=== PATIENT | male | born 1995 | race Caucasian/White ===

== ENCOUNTER 2017-08-06 21:24 | Emergency (ER) | payer BC ==
[2017-08-06] MEDS ORDERED: Albuterol 0.083% 2.5 MG/3 ML Neb Soln NEB ONE (21:33)
[2017-08-06] MEDS ORDERED: predniSONE 20 MG Tab PO ONE (21:38)
[2017-08-06 21:39] VITALS: BP 147/80
[2017-08-06] MEDS ORDERED: Albuterol 0.5% 2.5 MG/0.5 ML Neb Soln ONE (21:42)
[2017-08-06] MEDS ORDERED: Albuterol 0.083% 2.5 MG/3 ML Neb Soln ONE (21:43)
--- NOTE | 2017-08-06 21:44 | EDM.PDOC ---
ED HPI GENERAL MEDICAL PROBLEM - General Chief Complaint: Respiratory Problem Stated Complaint: SOB POSS ASTHMA ATTACK Time Seen by Provider: 08/06/17 21:28 Source of Information: Reports: Patient History Limitations: Reports: Respiratory Distress - History of Present Illness INITIAL COMMENTS - FREE TEXT/NARRATIVE: Patient is a 22-year-old male presents ED complaining of shortness of breath. Patient has a history of asthma and normally uses a albuterol inhaler when exacerbations occur. Patient states he did not have insurance and thus he was not able to refill the albuterol inhaler prescription. States he has had a exacerbation of asthma daily for quite some time. States normally occurs with the plan with his dog or exert himself. He's had a cough is nonproductive. Denies any fever, chills, recent upper respiratory infection, chest pain, abdominal pain, or any additional complaints. Patient states normally 2 puffs of inhaler will relieve his symptoms. - Related Data Allergies Allergy/AdvReac Type Severity Reaction Status Date / Time Penicillins Allergy Cannot Verified 07/10/17 20:17 CDT Remember dust Allergy Wheezing Uncoded 08/06/17 21:39 Home Meds: Home Meds Albuterol [Proventil HFA] 200 puff INH Q4H PRN #1 inhaler 08/06/17 [Rx] Prednisone [IJD: predniSONE] 40 mg PO WITHBREAKFAST #10 tab 08/06/17 [Rx] Past Medical History - Past Health History Medical/Surgical History: Denies Medical/Surgical History Social & Family History - Tobacco Use Smoking Status *Q: Current Some Day Smoker Years of Tobacco use: 1 Packs/Tins Daily: 0.1 Second Hand Smoke Exposure: No - Caffeine Use Caffeine Use: Reports: Coffee, Energy Drinks - Recreational Drug Use Recreational Drug Use: Yes Drug Use in Last 12 Months: Yes Recreational Drug Type: Reports: Marijuana/Hashish Other Recreational Drug Type: mushrooms Recreational Drug Use Frequency: Not Used In Over 2 Months ED ROS GENERAL - Review of Systems Review Of Systems: ROS reveals no pertinent complaints other than HPI. ED EXAM, GENERAL - Physical Exam Exam: See Below Exam Limited By: No Limitations General Appearance: Alert, WD/WN, Mild Distress Ears: Hearing Grossly Normal Nose: Normal Inspection, Normal Mucosa, No Blood Throat/Mouth: Normal Inspection, Normal Oropharynx, Normal Voice, No Airway Compromise Head: Atraumatic, Normocephalic Neck: Normal Inspection, Supple Respiratory/Chest: Chest Non-Tender, Respiratory Distress, Wheezing (All lobes.) , Accessory Muscle Use, Prolonged Expiration, Other (Able to speak in 3-5 word sentences.) Cardiovascular: Normal Peripheral Pulses, Regular Rate, Rhythm Peripheral Pulses: 2+: Radial (R) Neurological: Alert, Oriented, CN II-XII Intact, Normal Cognition, No Motor/ Sensory Deficits Psychiatric: Normal Affect, Normal Mood Skin Exam: Warm, Dry, Intact, Normal Color, No Rash Course - Vital Signs Last Recorded V/S: Last Vital Signs Temp 97.9 F 08/06/17 21:35 Pulse 84 08/06/17 21:35 Resp 22 H 08/06/17 21:35 BP 147/80 H 08/06/17 21:35 Pulse Ox 96 08/06/17 21:45 - Orders/Labs/Meds Orders: Active Orders 24 hr Category Date Time Status RT Aerosol Therapy [RC] ASDIRECTED Care 08/06/17 21:35 Active Meds: Medications Discontinued Medications Generic Name Dose Route Start Last Admin Trade Name Michele PRN Reason Stop Dose Admin Albuterol 2.5 mg 08/06/17 21:33 08/06/17 21:45 Proventil Neb Soln NEB 08/06/17 21:34 2.5 mg ONETIME ONE Administration Albuterol Confirm 08/06/17 21:42 08/06/17 21:44 Proventil Administered 08/06/17 21:43 Not Given Dose 2.5 mg .ROUTE .STK-MED ONE Albuterol Confirm 08/06/17 21:43 08/06/17 21:45 Proventil Neb Soln Administered 08/06/17 21:44 Not Given Dose 2.5 mg .ROUTE .STK-MED ONE Prednisone 40 mg 08/06/17 21:38 08/06/17 21:59 Prednisone PO 08/06/17 21:39 40 mg ONETIME ONE Administration - Re-Assessments/Exams Free Text/Narrative Re-Assessment/Exam: Ordered albuterol neb treatment 2.5 mg and prednisone 40 mg by mouth. 08/06/17 22:31 Symptoms have resolved. He is ready be discharged home. Discharge instructions as documented. Departure - Departure Time of Disposition: 22:31 Disposition: Home, Self-Care 01 Clinical Impression: Exacerbation of asthma Qualifiers: Asthma severity: mild Asthma persistence: intermittent Qualified Code(s): J45.21 - Mild intermittent asthma with (acute) exacerbation - Discharge Information Prescriptions: Albuterol [Proventil HFA] 200 puff INH Q4H PRN #1 inhaler PRN Reason: Dyspnea Prednisone [IJD: predniSONE] 40 mg PO WITHBREAKFAST #10 tab Instructions: Asthma, Adult Referrals: Domingo Shannon [Physician] - Forms: ED Department Discharge Additional Instructions: As discussed take prednisone 40 mg every day for the next 5 days. Utilize albuterol inhaler 1-2 puffs every 4 hours as needed for dyspnea. Follow-up with Dr. Perez at [facility] in [place] for reevaluation this coming week and to establish care. Return to the ED as needed for any new or worsening symptoms. Do not smoke marijuana. - My Orders Last 24 Hours: My Active Orders 08/06/17 21:35 RT Aerosol Therapy [RC] ASDIRECTED - Assessment/Plan Last 24 Hours: My Active Orders 08/06/17 21:35 RT Aerosol Therapy [RC] ASDIRECTED
== END 2017-08-06 22:39 | disposition home or self-care (01) ==
LOC: JD.ED 21:24
DX: J45.21 Mild intermittent asthma with (acute) exacerbation (principal); F17.210 Nicotine dependence, cigarettes, uncomplicated; Z88.0 Allergy status to penicillin; Z91.048 Other nonmedicinal substance allergy status
CPT/HCPCS: 94640; 99285; A9270; 99283